=== PATIENT | female | born 1980 | race Caucasian/White ===

== ENCOUNTER 2020-08-01 04:50 | Emergency (ER) | payer MEDICAID ==
[~2020-08-01] VITALS: Ht 167.6 cm; Wt 108.9 kg
[2020-08-01 04:55] VITALS: BP_SYST 142
--- NOTE | 2020-08-01 05:12 | NUR ---
Patient to ER bed 8 to gown for evaluation. Side rails up.
--- NOTE | 2020-08-01 05:14 | NUR ---
pt a&o x4 from home c/o right shoulder pain radiating down right arm that started about an hour ago and woke her up from her sleep. pt states she is currently under an enormous amount of stress. pt rates pain a 6 out of 10. pt reports epigastric pain.
--- NOTE | 2020-08-01 05:29 | NUR ---
ER Dr. Dawkins at bedside examining patient.
--- NOTE | 2020-08-01 05:46 | NUR ---
pt ambulated to restroom with steady gait to give urine sample.
--- NOTE | 2020-08-01 05:48 | NUR ---
lab at bedside for blood draw.
[2020-08-01 05:57] LABS: BILIRUBIN,URINE NEGATIVE (NEGATIVE); CLARITY/URINE CLEAR (CLEAR); COLOR,URINE YELLOW (YELLOW); GLUCOSE,URINE NEGATIVE (NEGATIVE); KETONES,URINE 1+ (NEGATIVE); LEUKOCYTE ESTERASE ,URINE NEGATIVE (NEGATIVE); NITRITE, URINE NEGATIVE (NEGATIVE); PROTEIN URINE NEGATIVE (NEGATIVE); UROBILINOGEN,URINE 0.2 (0.2-1.0)
--- NOTE | 2020-08-01 05:58 | NUR ---
radiology at bedside for xrays.
[2020-08-01 06:00] LABS: BLOOD, URINE TRACE (NEGATIVE)
--- NOTE | 2020-08-01 06:03 | NUR ---
Patient transported to radiology via wheelchair, accompanied by
[2020-08-01 06:14] LABS: BASOPHILS % (AUTO) 0.5 % (0.0-2.0); EOSINOPHILS # (AUTO) 0.1 K/uL (0.0-0.4); EOSINOPHILS % (AUTO) 1.4 % (0.0-4.0); HEMATOCRIT 41.1 % (36-48); HEMOGLOBIN 13.9 g/dL (12.0-16.0); LYMPHOCYTES # (AUTO) 2.1 K/uL (1.0-5.5); LYMPHOCYTES % (AUTO) 29.4 % (20.5-51.5); MEAN CORPUSCULAR HEMOGLOBIN 31 pg (27-31); MEAN CORPUSCULAR HGB CONC 34 % (32-36); MEAN CORPUSCULAR VOLUME 91 fL (79.0-98.0); MONOCYTES # (AUTO) 0.5 K/uL (0.0-1.0); MONOCYTES % (AUTO) 6.6 % (1.7-9.3); NEUTROPHILS # (AUTO) 4.5 K/uL (1.8-7.7); NEUTROPHILS % (AUTO) 62.1 % (40.0-70.0); PLATELET COUNT (AUTO) 277 K/uL (130-430); RED CELL DISTRIBUTION WIDTH 13.6 % (9.0-15.0); WHITE BLOOD COUNT (AUTO) 7.2 K/uL (4.8-10.8)
--- NOTE | 2020-08-01 06:14 | NUR ---
Returned from radiology, back to [facility].
[2020-08-01 06:17] LABS: ANION GAP 10 (5-15); CALCIUM 8.7 mg/dL (8.4-11.0); CHLORIDE 103 mmol/L (98-107); CREATININE 0.93 mg/dL (0.55-1.30); GLUCOSE 105 mg/dL (70-99); POTASSIUM 3.3 mmol/L (3.5-5.1); SODIUM SERUM 140 mmol/L (136-145); UREA NITROGEN, BLOOD 9 mg/dL (8-21)
[2020-08-01 06:18] LABS: GFR AFRICAN AMERICAN 85 mL/min (>90)
[2020-08-01 06:19] LABS: BACTERIA,URINE FEW /HPF (None Seen); WBC,URINE 0-3 /HPF (0-3)
[2020-08-01 06:25] LABS: ALANINE AMINOTRANSFERASE 24 U/L (12-78); ALBUMIN 3.6 g/dL (3.4-4.8); ASPARTATE AMINOTRANSFERASE 17 U/L (10-37); TOTAL BILIRUBIN 0.6 mg/dL (0.0-1.0)
[2020-08-01] MEDS ORDERED: LORazepam 1 MG TABLET ONE (06:56)
[2020-08-01] MEDS ORDERED: LORazepam 1 MG TABLET PO ONE (07:00)
[2020-08-01 07:05] VITALS: BP_SYST 127
--- NOTE | 2020-08-01 07:05 | NUR ---
Patient given written and verbal discharge instructions and verbalizes understanding. ER MD discussed with patient the results and treatment provided. Patient in stable condition. ID arm band removed. Rx of ativan given. Patient educated on pain management and to follow up with PMD. Pain Scale 0/10. Opportunity for questions provided and answered. Medication side effect fact sheet provided.
== END 2020-08-01 07:05 | disposition home or self-care (01) ==
LOC: SED 04:50
DX: F41.9 Anxiety disorder, unspecified (principal); Z88.0 Allergy status to penicillin
CPT/HCPCS: 36415; 70450-TC; 71045; 73030; 76376; 80053; 81000-TC; 81025; 84484; 85025; 93005; 99285

== ENCOUNTER 2023-07-27 07:30 | Emergency (ER) | payer SELFPAY ==
[~2023-07-27] VITALS: Ht 167.6 cm; Wt 70.3 kg
[2023-07-27 07:33] VITALS: BP_SYST 181; PULSE 210; RESP 28; TEMP 98.1; O2SAT 88
[2023-07-27] MEDS ORDERED: ADENOSINE 6MG/2ML VIAL IVP ONE (07:45)
[2023-07-27 08:17] LABS: ANION GAP 16 (5-15); BASOPHILS # (AUTO) 0.1 K/uL (0.0-0.2); BASOPHILS % (AUTO) 0.9 % (0.0-2.0); CALCIUM 9.6 mg/dL (8.4-11.0); CARBON DIOXIDE 22 mmol/L (23-29); CHLORIDE 96 mmol/L (98-107); CREATININE 1.44 mg/dL (0.55-1.30); EOSINOPHILS # (AUTO) 0.2 K/uL (0.0-0.4); EOSINOPHILS % (AUTO) 2.2 % (0.0-4.0); GFR AFRICAN AMERICAN 51 mL/min (>90); GLUCOSE 227 mg/dL (74-106); HEMATOCRIT 46.8 % (36-48); HEMOGLOBIN 15.5 g/dL (12.0-16.0); LYMPHOCYTES # (AUTO) 4.7 K/uL (1.0-5.5); MEAN CORPUSCULAR HEMOGLOBIN 31 pg (27-31); MEAN CORPUSCULAR HGB CONC 33 % (32-36); MEAN CORPUSCULAR VOLUME 93 fL (79.0-98.0); MONOCYTES # (AUTO) 0.7 K/uL (0.0-1.0); MONOCYTES % (AUTO) 6.2 % (1.7-9.3); NEUTROPHILS # (AUTO) 5.5 K/uL (1.8-7.7); NEUTROPHILS % (AUTO) 48.7 % (40.0-70.0); PLATELET COUNT (AUTO) 342 K/uL (130-430); POTASSIUM 3.1 mmol/L (3.5-5.1); RED BLOOD CELL COUNT(AUTO) 5.04 MIL/uL (4.2-6.2); RED CELL DISTRIBUTION WIDTH 13.3 % (9.0-15.0); SODIUM SERUM 134 mmol/L (136-145); UREA NITROGEN, BLOOD 13 mg/dL (8-21); WHITE BLOOD COUNT (AUTO) 11.3 K/uL (4.8-10.8)
[2023-07-27 08:20] LABS: GFR NON AFRICAN-AMERICAN 42 mL/min (>90)
[2023-07-27 08:24] LABS: PHOSPHORUS 3.3 mg/dL (2.7-4.5)
[2023-07-27] MEDS ORDERED: NACL 0.9% 1,000 ML IV ONE (09:00)
[2023-07-27 10:33] VITALS: BP_SYST 96; PULSE 86; RESP 18; TEMP 98.3; O2SAT 97
[2023-07-27] MEDS ORDERED: ACETAMINOPHEN I.V. 1000 MG 100 ML IV ONE (17:30)
[2023-07-27] MEDS ORDERED: fentaNYL CITRATE/PF 100 MCG/2 ML AMP ONE (17:30)
[2023-07-27] MEDS ORDERED: KETAMINE HCL IN 0.9 % NACL 50 MG/5 ML SYRINGE ONE (17:31)
== END 2023-07-27 10:21 | disposition home or self-care (01) ==
LOC: SED 07:30
DX: I47.10 Supraventricular tachycardia, unspecified (principal); N17.9 Acute kidney failure, unspecified; R07.9 Chest pain, unspecified; R06.02 Shortness of breath; Z88.0 Allergy status to penicillin; Z79.899 Other long term (current) drug therapy
CPT/HCPCS: 99291; 96374; 96361; 80048; 83735; 84100; 85025; 84484; 36415; 93005; 71045; J0153; J3010; J7030; J0131